=== PATIENT | female | born 1985 | race American Indian/Alaskan Native ===

== ENCOUNTER 2016-12-30 14:42 | Emergency (ER) | payer MEDICAID ==
[2016-12-30 14:42] VITALS: BMI 48.1
[2016-12-30 14:57] VITALS: BP 113/68; PULSE 106; RESP 20; TEMP 97.8; O2SAT 100
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
[2016-12-30 15:54] LABS: URINE BILIRUBIN NEGATIVE (NEGATIVE); URINE BLOOD NEGATIVE (NEGATIVE); URINE COLOR Straw (YELLOW); URINE GLUCOSE (UA) NORMAL (Normal); URINE KETONE NEGATIVE (NEGATIVE); URINE LEUKOCYTE ESTERASE NEG Leu/uL (Negative); URINE PROTEIN NEGATIVE (NEGATIVE); URINE UROBILINOGEN NORMAL mg/dL (0.2-1.0); WBC URINE 1 /hpf (0-5)
== END 2016-12-30 16:00 | disposition home or self-care (01) ==
LOC: C.ER 14:42
DX: S39.012A Strain of muscle, fascia and tendon of lower back, initial encounter (principal); X58.XXXA Exposure to other specified factors, initial encounter; F16.10 Hallucinogen abuse, uncomplicated

== ENCOUNTER 2017-11-12 11:52 | Emergency (ER) | payer MEDICAID ==
[2017-11-12 11:52] VITALS: BMI 48.1
[2017-11-12 12:11] VITALS: RESP 18; O2SAT 100
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
[2017-11-12 14:54] LABS: ALB/GLOB RATIO 1.2 (1.0-2.1); ALBUMIN 4.3 g/dL (3.5-5.0); ALT/SGPT 20 U/L (9-52); AST/SGOT 33 U/L (14-36); BLOOD UREA NITROGEN 10 mg/dL (7-17); CALCIUM 7.8 mg/dl (8.6-10.4); GFR AFRICAN-AMERICAN > 60; GFR NON-AFRICAN AMERICAN > 60
[2017-11-12 14:58] LABS: BASO % 0.5 % (0.0-2.0); EOS # 0.1 K/uL (0.0-0.7); EOS % 0.8 % (0.0-4.0); HEMOGLOBIN 13.7 g/dL (11.0-16.0); LYMPH # 2.4 K/uL (1.0-4.3); LYMPH % 27.3 % (20.0-40.0); MEAN CELL VOLUME 93.2 fL (81.0-99.0); MEAN CORPUSCULAR HEMOGLOBIN 30.7 pg (27.0-31.0); MEAN PLATELET VOLUME 7.7 fL (7.2-11.7); MONO # 0.6 K/uL (0.0-0.8); MONO % 6.7 % (0.0-10.0); NEUT # 5.7 K/uL (1.8-7.0); NEUT % 64.7 % (50.0-75.0); RBC 4.44 Mil/uL (3.80-5.20); RED CELL DISTRIBUTION WIDTH 13.8 % (11.5-14.5); WHITE BLOOD COUNT 8.8 K/uL (4.8-10.8)
[2017-11-12] MEDS ORDERED: Iodixanol 320 MG/ML 100 ML BOTTLE IV ONE (16:02)
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
[2017-11-12 17:32] VITALS: BP 117/76; PULSE 76; TEMP 98
== END 2017-11-12 17:32 | disposition home or self-care (01) ==
LOC: C.ER 11:52
DX: T14.8XXA Other injury of unspecified body region, initial encounter (principal); T71.9XXA Asphyxiation due to unspecified cause, initial encounter
CPT/HCPCS: 70491; 73140; 80053; 85025; 96374; 99284; J1885; Q9967

== ENCOUNTER 2017-12-08 21:57 | Emergency (ER) | payer MEDICAID ==
[2017-12-08 21:58] VITALS: BMI 48.1
[2017-12-09 00:49] VITALS: BP 105/70; PULSE 74; RESP 16; TEMP 98.8; O2SAT 100
--- NOTE | 2017-12-09 01:00 | CT ---
EXAM: CT Orbits Without Intravenous Contrast CLINICAL HISTORY: 32 years old, female; Pain and signs and symptoms; Other: Swelling and pain; Eye pain and face pain; Left; Patient HX: 11-01-13; Additional info: Pain, swelling left orbit, nasal area TECHNIQUE: Axial computed tomography images of the orbits without intravenous contrast. All CT scans at this facility use one or more dose reduction techniques, viz.: automated exposure control; ma/kV adjustment per patient size (including targeted exams where dose is matched to indication; i.e. head); or iterative reconstruction technique. Coronal and sagittal reformatted images were created and reviewed. COMPARISON: No relevant prior studies available. FINDINGS: Orbits: Scattered foci of air within left orbit. Sinuses: Mild mucosal thickening of LEFT maxillary sinus. Scattered minimal mucosal thickening of ethmoid sinuses. Air-fluid level within LEFT maxillary sinus. Bones/joints: Depressed fracture floor of left orbit. Soft tissues: LEFT periorbital/maxillary soft tissue swelling/air. Dental: Periapical lucency compatible with dental disease. IMPRESSION: 1. Facial fracture as above. 2. Incidental/non-acute findings are described above.
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
--- NOTE | 2017-12-09 08:32 | RAD ---
PROCEDURE: Right Knee Radiographs. HISTORY: pain, fall COMPARISON: None. FINDINGS: BONES: No acute fracture. JOINTS: Unremarkable. JOINT EFFUSION: Moderate suprapatellar effusion. OTHER FINDINGS: None. IMPRESSION: Moderate suprapatellar effusion without demonstrated acute fracture or dislocation.
== END 2017-12-09 01:25 | disposition home or self-care (01) ==
LOC: C.ER 21:57
DX: S80.01XA Contusion of right knee, initial encounter (principal); S00.12XA Contusion of left eyelid and periocular area, initial encounter; S02.32XA Fracture of orbital floor, left side, initial encounter for closed fracture; Y04.0XXA Assault by unarmed brawl or fight, initial encounter; Z72.0 Tobacco use; E03.9 Hypothyroidism, unspecified

== ENCOUNTER 2018-04-05 09:48 | Emergency (ER) | payer MEDICAID ==
[2018-04-05 09:49] VITALS: BMI 48.1
[2018-04-05 10:00] VITALS: TEMP 98.6; O2SAT 100
--- NOTE | 2018-04-05 10:51 | RAD ---
Date of service: 04/05/2018 HISTORY: r/o infiltrate COMPARISON: Chest radiograph dated 12/23/2015 TECHNIQUE: Chest PA and lateral FINDINGS: LUNGS: No active pulmonary disease. PLEURA: No significant pleural effusion identified. No pneumothorax apparent. CARDIOVASCULAR: Normal. OSSEOUS STRUCTURES: No significant abnormalities. VISUALIZED UPPER ABDOMEN: Right upper quadrant surgical clips. OTHER FINDINGS: None. IMPRESSION: No active disease.
[2018-04-05 11:01] VITALS: BP 102/73; PULSE 80; RESP 20
--- NOTE | 2018-04-05 11:20 | C.PDOC ---
History Of Present Illness 32 year old female presents to ED complaining of coughing for the past three weeks. Patient states she is coughing up green sputum. Patient reports she went to [facility] where she was prescribed Augmentin for an upper respiratory infection. She states she went to Dr. Chambers and was seen by a nurse practitioner. Patient reports the nurse told her she looks very sick and referred her to the ER. Denies fever, chills, nausea, vomiting. Chief Complaint (Nursing): Cough, Cold, Congestion History Per: Patient History/Exam Limitations: no limitations Onset/Duration Of Symptoms: Days Current Symptoms Are (Timing): Still Present Past Medical History Reviewed: Historical Data, Nursing Documentation, Vital Signs Vital Signs: Last Vital Signs Temp 98.6 F 04/05/18 11:00 Pulse 80 04/05/18 11:00 Resp 20 04/05/18 11:00 BP 102/73 04/05/18 11:00 Pulse Ox 100 04/06/18 10:45 - Medical History PMH: Anxiety, Depression, Gall Bladder Disease (GALL STONES/SURGERY), Hypothyroidism, Peripheral Edema Denies: Chronic Kidney Disease Surgical History: Cholecystectomy (2008), Endoscopy - [facility] Procedures ATTACH PEDICLE GRAFT NEC (06/24/13) ESOPHAGOGASTRODUODENOSCOPY [EGD] W/CLOSED BIOPSY (09/23/14) LAPAROSCOPIC ROBOTIC ASSISTED PROCEDURE (11/10/14) LAPAROSCOPIC VERTICAL (SLEEVE) GASTRECTOMY (11/10/14) OTHER ENDOSCOPY OF SM INTEST (11/10/14) Family History: States: No Known Family Hx - Social History Hx Tobacco Use: Yes Hx Alcohol Use: No Hx Substance Use: No - Immunization History Hx Tetanus Toxoid Vaccination: No Hx Influenza Vaccination: Yes Hx Pneumococcal Vaccination: No Review Of Systems Except As Marked, All Systems Reviewed And Found Negative. Constitutional: Negative for: Fever, Chills Respiratory: Positive for: Cough, Sputum (green) Gastrointestinal: Negative for: Nausea, Vomiting Physical Exam - Physical Exam Appears: Non-toxic, No Acute Distress Skin: Warm, Dry Head: Atraumatic, Normacephalic Eye(s): bilateral: Normal Inspection Oral Mucosa: Moist Neck: Supple Cardiovascular: Rhythm Regular, No Murmur Respiratory: Normal Breath Sounds, No Rales, No Rhonchi, No Wheezing, Other ( observed coughing in emergency room) Extremity: Normal ROM Neurological/Psych: Oriented x3, Normal Speech ED Course And Treatment O2 Sat by Pulse Oximetry: 100 (RA) Pulse Ox Interpretation: Normal - Other Rad chest x ray X-Ray: Interpreted by Me, Viewed By Me Interpretation: Date of service: 04/05/2018. HISTORY: r/o infiltrate. COMPARISON: Chest radiograph dated 12/23/2015. TECHNIQUE: Chest PA and lateral. FINDINGS: LUNGS: No active pulmonary disease. PLEURA: No significant pleural effusion identified. No pneumothorax apparent. CARDIOVASCULAR: Normal. OSSEOUS STRUCTURES: No significant abnormalities. VISUALIZED UPPER ABDOMEN: Right upper quadrant surgical clips. OTHER FINDINGS : None. IMPRESSION: No active disease. Progress Note: Chest x-ray was ordered. X-ray was negative and patient was dischraged home with instructions to follow up with ENT specialist. Disposition - Disposition Referrals: Luis Angel Chambers MD [Staff Provider] - Yusuf Suarez MD [Staff Provider] - Disposition: HOME/ ROUTINE Disposition Time: 11:15 Condition: STABLE Additional Instructions: Follow up with your PMD and ENT specialist within 1-2 days. Return to ED if feel worse. Prescriptions: Clarithromycin [Biaxin Filmtab] 500 mg PO Q12 #14 tab Albuterol Sulfate [Proair Hfa] 1 puff IH Q6 PRN #1 inh PRN Reason: Cough Promethazine HCl/Codeine [Prometh-Codein 6.25-10 mg/5 ml] 5 ml PO .Q4-6H #150 ml Benzonatate [Tessalon Perles] 2 tab PO TID #60 sgl Instructions: Acute Bronchitis Forms: [facility] ([place] Citizen) - Clinical Impression Clinical Impression: Bronchitis - PA / COOPERATIVE EDUCATION DIRECTOR / Resident Statement MD/DO has reviewed & agrees with the documentation as recorded. - Scribe Statement The provider has reviewed the documentation as recorded by the Scribe Abner Short All medical record entries made by the Scribe were at my direction and personally dictated by me. I have reviewed the chart and agree that the record accurately reflects my personal performance of the history, physical exam, medical decision making, and the department course for this patient. I have also personally directed, reviewed, and agree with the discharge instructions and disposition.
== END 2018-04-05 11:25 | disposition home or self-care (01) ==
LOC: C.ER 09:48
DX: J40 Bronchitis, not specified as acute or chronic (principal); E03.9 Hypothyroidism, unspecified; Z72.0 Tobacco use